=== PATIENT | male | born 1980 | race Two or more races ===

== ENCOUNTER 2019-10-27 05:56 | Day surgery (SDC) | payer OTHER | END 2019-10-27 09:55 | disposition home or self-care (01) | LOC: AMB-ENDOS 05:56 | DX: K31.7 Polyp of stomach and duodenum (principal); K44.9 Diaphragmatic hernia without obstruction or gangrene ==

== ENCOUNTER 2020-07-06 16:47 | Inpatient (IN) | payer OTHER ==
[~2020-07-06] VITALS: Ht 190.5 cm; Wt 183.7 kg
[2020-07-06] MEDS ORDERED: IRBESARTAN 150 MG (18:01)
[2020-07-06] MEDS ORDERED: PROTONIX 40 MG (18:02)
[2020-07-06] MEDS ORDERED: METROPOLOL 50 MG. (18:02)
[2020-07-06] MEDS ORDERED: DICY20TA (18:03)
[2020-07-11] MEDS ORDERED: CIPRO500 MG PO (12:17)
[2020-07-11] MEDS ORDERED: FLAGYL500MG PO (12:18)
[2020-07-11] MEDS ORDERED: INTESTINEX680 M1 PO (12:19)
[2020-07-11] MEDS ORDERED: PEPCID AC20 MG PO (12:19)
== END 2020-07-11 13:15 | disposition home or self-care (01) | DRG 392 ==
LOC: ER 16:47 → MEDI 22:38
PROVIDERS: ADMIT Internal Medicine; ATTEND Internal Medicine
DX: K57.32 Diverticulitis of large intestine without perforation or abscess without bleeding (principal); I10 Essential (primary) hypertension; E11.9 Type 2 diabetes mellitus without complications; E66.8 Other obesity; Z20.828 Contact with and (suspected) exposure to other viral communicable diseases